=== PATIENT | female | born 1975 | race Caucasian/White ===

== ENCOUNTER 2018-01-08 13:17 | Emergency (ER) | END 2018-01-08 15:59 | disposition home or self-care (01) ==

== ENCOUNTER 2018-04-12 02:02 | Emergency (ER) | payer OTHER ==
[~2018-04-12] VITALS: Ht 170.2 cm; Wt 95.8 kg
[~2018-04-12 02:02] MED LIST: ACET500C5 PO; ACYC400T2 PO; AMOX500C2 PO; AZIT250T PO; BISM262T59 PO; CETI10CA PO; DEXT15DR5 OP; DIPH25CA6 PO; FAMO-96 PO; FLUT16SP17 NASAL; IBUP-1542 PO; NAPH15DR69 RIGHT EYE; NPH10OT RIGHT EAR; OMEP20CA16 PO; OMEP20CA9 PO; PANT40TA3 PO; PRED50TA PO; PSEU120T12 PO; ZOF8 PO
[2018-04-12 02:04] VITALS: Ht 170.2 cm; Wt 95.8 kg
[2018-04-12] MEDS ORDERED: CIPR500T4 PO (02:50)
[2018-04-12] MEDS ORDERED: NAPR-985 PO (02:50)
[2018-04-12] MEDS ORDERED: TAMS-14 PO (02:50)
[2018-04-12 03:22] VITALS: BP 120/80; PULSE 98; RESP 15
--- NOTE | 2018-04-12 04:55 | ERD ---
ER Documentation Chief Complaint Chief Complaint RECTAL PAIN [id number]; NO BLEEDING HPI 42-year-old transgender female presenting with rectal pain. Patient is genetically male. Patient states that he has had pain for the last 2 days with no fevers. Patient performs anal sex. Patient denies changes in bowel movement. Took ibuprofen and Tylenol for the last 2 days with alleviation of pain. Medical history inguinal surgery history. NKDA. Social history denies ROS All systems reviewed and are negative except as per history of present illness. Medications Home Meds Active Scripts Naproxen* (Naprosyn*) 500 Mg Tablet, 500 MG PO BID PRN for PAIN AND/OR INFLAMMATION, #30 TAB Prov:DARYA HA PA-C 04/12/18 Ciprofloxacin Hcl* (Ciprofloxacin Hcl*) 500 Mg Tablet, 500 MG PO BID for 7 Days, TAB Prov:DARYA HA PA-C 04/12/18 Tamsulosin Hcl* (Flomax*) 0.4 Mg Cap.er.24h, 0.4 MG PO BID, #30 CAP Prov:DARYA HA PA-C 04/12/18 Bismuth Subsalicylate* (Pepto-Bismol*) 262 Mg Tablet, 1 TAB PO Q6H PRN for DIARRHEA, #15 TAB Prov:JOSE CUETO MD 01/08/18 Acetaminophen* (Tylophen*) 500 Mg Capsule, 1 CAP PO Q6H PRN for PAIN AND OR ELEVATED TEMP, #20 CAP Prov:JOSE CUETO MD 01/08/18 Fluticasone Propionate* (Fluticasone Propionate* Nasal) 50 Mcg/[place] - 16 Gm [place].susp, 2 SPRAYS NASAL DAILY, #1 BOTTLE TO EACH NOSTRIL Prov:TOAN ATKINSON PA-C 02/07/16 Pseudoephedrine Hcl (Sudafed 12 Hour) 120 Mg Tablet.sa, 120 MG PO BID for 7 Days Prov:TOAN ATKINSON PA-C 02/07/16 Cetirizine Hcl* (Zyrtec*) 10 Mg Capsule, 10 MG PO DAILY, #14 TAB.CHEW Prov:TOAN ATKINSON PA-C 02/07/16 Dextran 70/Hypromellose (ARTIFICIAL TEARS EYE DROPS) 15 Ml Drops, 4 ML OP Q6, #1 BOTTLE Prov:ALEKSEY SHAH NP 12/17/15 Naphazoline-Pheniramine* (Visine-A*) 15 Ml Drops, 2 DROP RIGHT EYE Q4H PRN for RED EYES, #1 EA Prov:ALEKSEY SHAH NP 12/17/15 Ibuprofen* (Motrin*) 600 Mg Tab, 600 MG PO Q6H PRN for PAIN AND OR ELEVATED TEMP, #30 TAB Prov:ALEKSEY SHAH [employer] 12/17/15 Amoxicillin* (Amoxicillin*) 500 Mg Cap, 500 MG PO TID for 10 Days, CAP Prov:ALEKSEY SHAH NP 12/17/15 Neomycin/Polymyxin/Hydrocort* (Cortisporin* Otic) 10 Ml Susp, 4 DROP RIGHT EAR QID for 7 Days, #1 EA Prov:JOSE CUETO MD 12/11/15 Acyclovir* (Acyclovir*) 400 Mg Tablet, 400 MG PO TID for 7 Days, TAB Prov:JOSE CUETO MD 12/11/15 Ondansetron Hcl* (Zofran* ODT) 8 mg -ODT Tab.disper, 8 MG PO Q6 PRN for NAUSEA AND/OR VOMITING, #10 TAB Prov:DAGO HENNESSY PA-C 08/10/15 Acetaminophen* (Tylophen*) 500 Mg Capsule, 1 CAP PO Q6H PRN for PAIN AND OR ELEVATED TEMP, #30 CAP Prov:DAGO HENNESSY PA-C 08/10/15 Famotidine* (Pepcid*) 20 Mg Tablet, 20 MG PO QHS for 5 Days, TAB Prov:DAGO HENNESSY PA-C 08/10/15 Pantoprazole* (Protonix*) 40 Mg Tablet.dr, 40 MG PO DAILY, #30 TAB Prov:DAGO HENNESSY PA-C 08/10/15 Prednisone* (Prednisone*) 50 Mg Tablet, 50 MG PO DAILY, #5 TAB Prov:BHANU LISA PA-C 08/05/15 Ibuprofen* (Motrin*) 600 Mg Tab, 600 MG PO Q6H PRN for PAIN AND OR ELEVATED TEMP, #30 TAB Prov:BHANU LISA PA-C 08/05/15 Azithromycin* (Zithromax*) 250 Mg Tablet, 250 MG PO .AG DIRECTED, #6 TAB TAKE 500 MG (2 TABS) THE FIRST DAY THEN 250 MG (1 TAB) DAYS 2-5 Prov:BHANU LISA PA-C 08/05/15 Pseudoephedrine Hcl (Sudafed 12 Hour) 120 Mg Tablet.sa, 120 MG PO Q12, #14 Prov:OLIMPIA,BRO 01/22/15 Diphenhydramine Hcl (Benadryl) 25 Mg Cap, 25 MG PO QHS, #20 [facility] 01/22/15 Omeprazole* (Omeprazole*) 20 Mg Capsule.dr, 20 MG PO DAILY, #30 CAP [facility] 01/22/15 Fluticasone Propionate* (Fluticasone Propionate* Nasal) 50 Mcg/[place] - 16 Gm [place].susp, 2 SPRAYS NASAL DAILY, #1 EA TO EACH NOSTRIL Prov:OLIMPIABRO 01/22/15 Azithromycin* (Zithromax*) 250 Mg Tablet, 250 MG PO .MariPAYESENIA DIRECTED, #6 TAB TAKE 500 MG (2 TABS) THE FIRST DAY THEN 250 MG (1 TAB) DAYS 2-5 Prov:OLIMPIABRO 01/22/15 Reported Medications Omeprazole* (Prilosec*) 20 Mg Capsule.dr, 20 MG PO BID, CAP 01/22/15 Allergies Allergies: Coded Allergies: No Known Allergy (Verified , 01/22/15) PMhx/Soc History of Surgery: Yes (hernia repair) Anesthesia Reaction: No Hx Neurological Disorder: No Hx Respiratory Disorders: No Hx Cardiac Disorders: No Hx Psychiatric Problems: No Hx Miscellaneous Medical Probl: Yes (H-pylori) Hx Alcohol Use: No Hx Substance Use: No Hx Tobacco Use: No Smoking Status: Never smoker FmHx Family History: No diabetes, No coronary disease, No other Physical Exam Vitals Vital Signs Date Temp Pulse Resp B/P (MAP) Pulse Ox O2 O2 Flow FiO2 Time Delivery Rate 04/12/18 98.0 98 15 120/80 99 Room Air 03:22 (93) 04/12/18 97.0 112 19 129/74 98 02:04 (92) Physical Exam GENERAL: The patient is well-appearing, well-nourished, in no acute distress CHEST: Clear to auscultation bilaterally. There are no rales, wheezes or rhonchi. HEART: Regular rate and rhythm. No murmurs, clicks, rubs or gallops. No S3 or S4. ABDOMEN:Soft, nontender and nondistended. Good bowel sounds. No rebound or guarding. No gross peritonitis. No gross organomegaly or masses. No Faye s ign or McBurney point tenderness. BACK: No midline or flank tenderness. Rectal: Mildly enlarged prostate with no fluctuance Procedures/MDM MDM: 42-year-old genetic male presenting with rectal pain. We will treat with antibiotics as patient has early prostatitis. Patient is afebrile I have low suspicion for deep tracking infection or abscess formation. Patient is discharged stricter precautions and told to follow-up with primary care within 1-2 days for close evaluation. Patient is told if symptoms change or worsen to immediately return to the ER. All questions answered discharge Departure Diagnosis: Primary Impression: Pain Condition: Stable Patient Instructions: Bph (Enlarged Prostate) Referrals: [facility] YOU HAVE RECEIVED A MEDICAL SCREENING EXAM AND THE RESULTS INDICATE THAT YOU DO NOT HAVE A CONDITION THAT REQUIRES URGENT TREATMENT IN THE EMERGENCY DEPARTMENT. FURTHER EVALUATION AND TREATMENT OF YOUR CONDITION CAN WAIT UNTIL YOU ARE SEEN IN YOUR DOCTORS OFFICE WITHIN THE NEXT 1-2 DAYS. IT IS YOUR RESPONSIBILITY TO MAKE AN APPOINTMENT FOR FOLOW-UP CARE. IF YOU HAVE A PRIMARY DOCTOR --you should call your primary doctor and schedule an appointment IF YOU DO NOT HAVE A PRIMARY DOCTOR YOU CAN CALL OUR PHYSICIAN REFERRAL HOTLINE AT IF YOU CAN NOT AFFORD TO SEE A PHYSICIAN YOU CAN CHOSE FROM THE FOLLOWING [facility] [address] [place]. [facility] [address] [facility]. [facility] [address] [facility] [address] [facility] [address] [facility]. [facility] [address] Additional Instructions: FOLLOW UP WITH YOUR PRIMARY CARE PHYSICIAN TOMORROW.Return to this facility if you are not improving as expected. DARYA HA PA-C Apr 12, 2018 04:54
== END 2018-04-12 03:22 | disposition home or self-care (01) ==
LOC: FTE 02:02
DX: K62.89 Other specified diseases of anus and rectum (principal)